=== PATIENT | female | born 1985 | race Caucasian/White ===

== ENCOUNTER → 2017-09-04 15:15 | Outpatient (CLI) | payer BC, SELFPAY ==
[2017-09-04 18:04] LABS: Hemoglobin A1c 5.5 % (4.2-6.3)
[2017-09-04 18:05] LABS: Free T3 2.7 pg/mL (2.18-3.98); T4 Free Direct 0.81 ng/dL (0.76-1.46); Thyroid Stim Hormone (TSH) 1.06 uIU/mL (0.358-3.74)
== END ==
PROVIDERS: Family Provider Nurse Practitioner Primary Care; PCP Nurse Practitioner Primary Care; Visit Provider Obstetrics & Gynecology
DX: N92.0 Excessive and frequent menstruation with regular cycle (principal); Z86.32 Personal history of gestational diabetes
CPT/HCPCS: 83036; 84439; 84443; 84481

== ENCOUNTER → 2018-08-24 09:54 | Outpatient (CLI) | payer BC, SELFPAY ==
[2018-08-27 11:28] LABS: HPV APTIMA, High Risk Negative (Negative)
== END ==
PROVIDERS: Visit Provider Obstetrics & Gynecology
DX: Z01.419 Encounter for gynecological examination (general) (routine) without abnormal findings (principal); Z12.4 Encounter for screening for malignant neoplasm of cervix
CPT/HCPCS: 87624; 88175; G0145

== ENCOUNTER → 2018-08-27 16:53 | Outpatient (CLI) | payer BC, SELFPAY ==
[2016-12-20 15:41] VITALS: BMI 29.2
[2018-08-27 20:11] LABS: Chlamydia Trachomatis by PCR Negative (Negative); Neisserai gonorrhoeae by PCR Negative (Negative); Probe Check PASS; Sample Adequacy Control PASS; Specimen Processing Control PASS
== END ==
PROVIDERS: Visit Provider Obstetrics & Gynecology
DX: Z11.3 Encounter for screening for infections with a predominantly sexual mode of transmission (principal)
CPT/HCPCS: 87491; 87591

== ENCOUNTER 2019-06-29 17:07 | Emergency (ER) | payer BC, SELFPAY ==
[2019-06-29 17:09] VITALS: BP 127/71; PULSE 73; RESP 16; TEMP 36.6; O2SAT 99; BMI 26.5
--- NOTE | 2019-06-29 17:12 | NURSING ---
NO OLD EKGS
--- NOTE | 2019-06-29 17:40 | EKG12_ITS ---
Test Reason : CP Blood Pressure : / mmHG Vent. Rate : 060 BPM Atrial Rate : 060 BPM P-R Int : 162 ms QRS Dur : 084 ms QT Int : 424 ms P-R-T Axes : 026 040 041 degrees QTc Int : 424 ms Normal sinus rhythm Normal ECG Confirmed by ACE SINGH ([id number]), production editor SKIP GOLDSTEIN ([id number]) on 07/04/2019 9:07:56 AM Referred By: MR Confirmed By:ACE SINGH
[2019-06-29 17:51] VITALS: PULSE 71; RESP 18; O2SAT 100
--- NOTE | 2019-06-29 17:55 | RAD_ITS ---
STUDY: X-RAY CHEST REASON FOR EXAM: Female, 34 years old. Chest pain TECHNIQUE: Frontal and lateral views COMPARISON: None. FINDINGS: The lungs are clear and expanded. There is no demonstrated pleural abnormality. Normal size heart. Normal mediastinum and geoffrey. Normal visualized pulmonary arteries. Normal visualized aortic arch and descending thoracic aorta. Normal visualized thoracic spine. Normal visualized ribs, clavicles, and shoulders. There is no demonstrated abnormality of the visualized soft tissue structures of the upper abdomen. RAD/Chest PA and Lateral IMPRESSION: Normal x-ray examination of the chest. Electronically Signed: Kar Funk DO at 18:30 EST Tel [phone], Service support ,
[2019-06-29 18:03] LABS: Absolute Lymphocyte Count 3.19 X10^3/uL (0.83-4.51); Absolute Neutrophil Count 4.4 X10^3/uL (2.0-7.7); Basophil# 0.04 X10^3/uL; Basophil% 0.5 % (0-1); Eosinophil# 0.17 X10^3/uL; Hematocrit 43.5 % (37-47); Lymphocyte # 3.19 X10^3/ul (4.0); Lymphocyte % 37.6 % (19-41); Mean Corp Hgb Conc 32.2 g/dL (32-36); Mean Corpuscular Hgb 29.2 pg (27.0-32.0); Mean Corpuscular Volume 90.8 fL (81-99); Mean Platelet Vol. 11.2 fl (6.2-12.0); Monocyte# 0.69 X10^3/uL; Monocyte% 8.1 % (0-10); NRBC Flagged by Analyzer 0 % (0-5); Neutrophil # 4.38 X10^3/uL (2.7-7.7); Neutrophil % 51.6 % (47-70); Platelet Count 239 K/mm3 (150-450); RBC Distribution Width CV 12.3 % (11.6-14.6); RBC Distribution Width SD 40.6 fl (35.1-43.9); Red Blood Count 4.79 M/mm3 (4.2-5.4); White Blood Count 8.5 K/mm3 (4.4-11.0)
[2019-06-29 18:20] LABS: Internal QC Validated? YES +Cl - CLEAR BKGD; Pregnancy, Serum, hCG Quali. NEGATIVE Negative
[2019-06-29 18:21] LABS: D-Dimer Quantitative (DVT/PE) < 0.27 FEU/ug/m (0.27-0.49)
[2019-06-29 18:26] LABS: Anion Gap 5 (5-15); BUN 11 mg/dL (7-18); BUN/Creat Ratio 15.7 RATIO (10-20); Chloride 110 mmol/L (98-107); EST Glomerular Filtration Rate 100 mL/min (>60); Est Glom Filt Rate - Afr Amer 121 mL/min (>60); Estimated Creatinine Clearance 91.91 ml/min; Glucose 88 mg/dL (74-106); Potassium 3.6 mmol/L (3.5-5.1); Sodium Level 142 mmol/L (136-145); Thyroid Stim Hormone (TSH) 1.89 uIU/mL (0.358-3.74)
--- NOTE | 2019-06-29 19:07 | ED.VIS.CHEST ---
History of Present Illness Chief Complaint: Chest Pain Informant: Patient Narrative: Patient presenting for evaluation secondary to chest pain. Patient reports that over the course the last 2 days she has been dealing with intermittent chest pain. This has no exacerbating or relieving qualities and will last for about 30 minutes at a time and is describes as a tightness. No palpitations shortness of breath lightheadedness or syncope. Patient denies any recent weight loss weight gain heat or cold intolerance. Patient states that she was at her sleep apnea doctor and she was noted to have an irregular heartbeat and was recommended to come to the emergency department. Patient denies any DVT or PE risk factors other than the fact that she takes control. Review of systems otherwise negative. Past Medical History - Allergies and Home Meds Allergies/Adverse Reactions: Allergies naproxen Adverse Reaction (Verified 06/29/19 17:11) Nausea soy Adverse Reaction (Verified 06/29/19 17:11) Nausea/Vom/Diarrhea pea's Allergy (Uncoded 06/29/19 17:11) Other unknown reaction, food allergy tested Primary Care Physician: Carline Parikh NP-C [Primary Care Provider] - Past Medical History: None Smoking Status: Never smoker Review of Systems All systems negative except as indicated General: Denies: Chills, Fever, Sweats Eyes: Denies: Visual changes - bilaterally, Diplopia ENT: Denies: Rhinorrhea, Sore throat Cardiovascular: Reports: Chest pain Respiratory: Denies: Dyspnea, Cough, Dyspnea on exertion Gastrointestinal: Denies: Abdominal pain, Nausea, Vomiting, Diarrhea, Melena, Hematochezia Genitourinary: Denies: Dysuria, Hematuria, Frequency Musculoskeletal: Denies: Back pain, Extremity Pain Skin: Denies: Rash, Wounds Neurological: Denies: Headache, Weakness, Numbness Psych: Denies: Depression Endocrine: Denies: Polyuria Hematologic: Denies: Easy bleeding Allergy: Denies: Swelling of the mouth Physical Exam Vital Signs/Narrative: Vital Signs Temp Pulse Resp BP Pulse Ox 06/29/19 17:51 71 18 100 06/29/19 17:09 97.8 F 73 16 127/71 H 99 Inital Vital Signs reviewed: Yes General: Well nourished, Well developed, No Acute Distress Head: Normocephalic, Atraumatic Eyes: Perrl, EOMI ENT: Moist mucous membranes, No rhinorrhea Neck: Supple, Nontender Cardiovascular: Regular rate, No murmurs, Irregular - Frequent extrasystoles Respiratory: No distress, CTA bilaterally, Chest nontender Abdomen: Soft, Nontender, Nondistended, Normal bowel sounds Back: Nontender, Normal Inspection Extremities: Nontender, No edema Skin: Normal color, No rash Neurological: Alert, Oriented x3, Cranial nerves II-XII grossly intact, Normal Strength, Normal Sensation Psychological: Normal affect, Normal Mood Diagnostic/Tx/Re-eval Chest X-Ray - ED: 2 View, Read by ED Physician, Read by Radiologist, Normal - EKG Initial EKG Interpretation: - - Normal sinus rhythm of 60 with normal VA and QTc intervals. Isoelectric ST segments normal T waves. No evidence of acute ischemia or arrhythmia. No evidence of WPW or Brugada morphology. - Medical Decision Making Patient presented for evaluation secondary to chest pain. On the polysomnographic tech it was noted that the patient has having frequent PVCs up to 10-15 per 62nd interval. She had no couplets or runs of V. tach. Patient's work-up including CBC chemistry troponin TSH and d-dimer were all found to be unremarkable. Chest x-ray unremarkable. I discussed patient's case on the telephone with covering cardiology who recommended the patient be set up with a 48-hour Holter monitor, and will receive follow-up in the cardiology office and likely an outpatient echocardiogram. Patient's heart score is low risk she does not require admission for cardiac rule out.patient was set up for the Holter monitor in the emergency department and was discharged in stable condition. ED Disposition - Plan for ED Patient: Disposition: Home or Assisted Living Diagnosis: PVCs (premature ventricular contractions) Instructions: Palpitations Referrals: Tony Delvalle MD [STAFF PHYSICIAN] - As soon as possible
[2019-06-29 19:31] VITALS: BP 125/83; PULSE 66; RESP 21; O2SAT 98
--- NOTE | 2019-06-29 19:31 | ED.RN ---
IV DC'ED, CATHETER INTACT, SMALL GAUZE DRESSING PLACED. DISCHARGE INSTRUCTIONS GIVEN TO AND REVIEWED WITH PATIENT, PATIENT DENIES QUESTIONS OR CONCERNS AND VOICES UNDERSTANDING OF DISCHARGE INSTRUCTIONS. RESPIRATORY AT BEDSIDE TO PLACE HOLTER MONITOR.
== END 2019-06-29 19:32 | disposition home or self-care (01) ==
PROVIDERS: Emergency Provider Emergency Medicine; Family Provider Nurse Practitioner Primary Care; PCP Nurse Practitioner Primary Care
DX: I49.3 Ventricular premature depolarization (principal); G47.30 Sleep apnea, unspecified
CPT/HCPCS: 71046; 80048; 84443; 84484; 84703; 85025; 85379; 93005; 99284; A4216

== ENCOUNTER → 2019-06-29 19:14 | Outpatient (CLI) | payer BC, SELFPAY ==
[2019-06-29 17:09] VITALS: BMI 26.5
== END ==
LOC: ED 19:16 → CVS 19:19
PROVIDERS: Family Provider Nurse Practitioner Primary Care; PCP Nurse Practitioner Primary Care; Referring Provider Internal Medicine Cardiovascular Disease; Visit Provider Internal Medicine Cardiovascular Disease
DX: R07.9 Chest pain, unspecified (principal)
CPT/HCPCS: 93225; 93226

== ENCOUNTER → 2019-07-07 13:34 | Outpatient (CLI) | payer BC, SELFPAY ==
[2019-06-29 17:09] VITALS: BMI 26.5
[2019-07-01 11:04] VITALS: BMI 26.5
--- NOTE | 2019-07-07 13:36 | ECHOCS_ITS ---
Reason For Study: CP Procedure This was a 2D Doppler, Color Flow transthoracic echocardiogram. The study was technically difficult. Contrast injection was performed. Exam performed in department. Left Ventricle Normal LV size. Left ventricular systolic function is normal. The estimated ejection fraction is 65 %. No evidence for diastolic dysfunction. No regional wall motion abnormalities noted. Right Ventricle Normal size and thickness. Normal systolic function. Atria Normal left atrium. Normal right atrium. No doppler evidence for ASD. Mitral Valve There is no mitral annular calcification. Normal mitral valve. Trivial mitral valve insufficiency. Tricuspid Valve Normal tricuspid valve. Trivial tricuspid valve insufficiency. Aortic Valve Trisinus/trileaflet aortic valve. Normal aortic valve. Pulmonic Valve The pulmonic valve is not well visualized. Great Vessels Normal sized aortic root. Pericardium/Pleural No pericardial effusion. Medication 22 gauge I.V. with prn adaptor inserted into right arm. Diluted definity 2ml given slow IV push to enhance endocardial definition. MMode/2D Measurements & Calculations LVIDd: 4.3 cm IVSd: 0.98 cm LA dimension: 3.2 cm LVIDs: 2.6 cm LVPWd: 1.0 cm RVDd: 2.8 cm FS: 40.0 % LAV(MOD-sp4): 21.1 ml LA A4 area: 10.2 cm2 RA A4 area: 12.7 cm2 Time Measurements MV dec time: 0.20 sec Doppler Measurements & Calculations MV E max rober: 88.2 cm/sec Lat Peak E' Rober: 17.6 cm/sec Med Peak E' Rober: 15.6 cm/sec MV A max rober: 85.6 cm/sec E/E' lat: 5.0 E/E' med: 5.7 MV E/A: 1.0 MV V2 max: 109.1 cm/sec MV P1/2t max rober: 109.8 cm/sec Ao V2 max: 144.7 cm/sec MV max P.8 mmHg MV P1/2t: 64.4 msec Ao max P.4 mmHg MV V2 mean: 63.1 cm/sec MV dec slope: 498.9 cm/sec2 MV mean P.9 mmHg MV V2 VTI: 24.1 cm MVA(P1/2t): 3.4 cm2 LV V1 max: 99.2 cm/sec PA V2 max: 88.0 cm/sec LV V1 max P.9 mmHg Interpretation Summary The study was technically difficult. Contrast injection was performed. Left ventricular systolic function is normal. The estimated ejection fraction is 65 %. Trivial mitral valve insufficiency. Trivial tricuspid valve insufficiency. No evidence for diastolic dysfunction. Ordering Physician: Tony Delvalle Referring Physician: Carline Parikh Performed By: Aristeo Patel RCS
== END ==
PROVIDERS: Family Provider Nurse Practitioner Primary Care; PCP Nurse Practitioner Primary Care; Referring Provider Internal Medicine Cardiovascular Disease; Visit Provider Internal Medicine Cardiovascular Disease
DX: I49.3 Ventricular premature depolarization (principal); R07.9 Chest pain, unspecified
CPT/HCPCS: 93306; Q9957; A4216; C8929

== ENCOUNTER → 2019-07-09 11:15 | Outpatient (CLI) | payer BC, SELFPAY ==
[2019-07-01 11:04] VITALS: BMI 26.5
--- NOTE | 2019-07-09 17:13 | STRESSREP_ITS ---
Stress Test Report Date: 07-09-19 Procedure: Exercise tolerance test Indications: Chest pain Consent: Per the patient Procedure: The patient exercised on a Ney protocol for 10 minutes completing Stage III and 1 minute of Stage IV achieving a peak heart rate of 166 bpm (90 % predicted maximal heart rate) with a peak blood pressure 134/74 mmHg and a peak MET capacity of approximately 11 mET's. The baseline ECG demonstrated normal sinus rhythm. The peak exercise ECG demonstrated no obvious ECG changes. There were occasional PVCs pretest, during exercise, and recovery. The functional capacity was considered good. The patient had no complaint of chest discomfort during exercise or recovery. The examination was discontinued secondary to dyspnea and leg fatigue. Impression: 1. Technically adequate (percent predicted maximal heart rate greater than 85%) exercise tolerance test 2. Peak exercise ECG with with no obvious ECG changes 3. Occasional PVCs pretest, during exercise, and recovery This note was generated with [employer] software. It may contain incorrect words, spelling, and punctuation that were not noted in checking the note before signing.
== END ==
PROVIDERS: Family Provider Nurse Practitioner Primary Care; PCP Nurse Practitioner Primary Care; Referring Provider Internal Medicine Cardiovascular Disease; Visit Provider Internal Medicine Cardiovascular Disease
DX: R07.9 Chest pain, unspecified (principal)
CPT/HCPCS: 93017

== ENCOUNTER 2019-07-12 08:10 | Day surgery (SDC) | payer BC, SELFPAY ==
[2019-07-01 11:04] VITALS: BMI 26.5
[2019-07-07 16:28] LABS: Hematocrit 46.1 % (37-47); Hemoglobin 14.7 g/dL (12.0-15.0); Mean Corp Hgb Conc 31.9 g/dL (32-36); Mean Corpuscular Hgb 29.2 pg (27.0-32.0); Mean Corpuscular Volume 91.5 fL (81-99); Mean Platelet Vol. 11.3 fl (6.2-12.0); Platelet Count 228 K/mm3 (150-450); RBC Distribution Width CV 12.3 % (11.6-14.6); RBC Distribution Width SD 41.5 fl (35.1-43.9); Red Blood Count 5.04 M/mm3 (4.2-5.4); White Blood Count 8.9 K/mm3 (4.4-11.0)
[2019-07-07 16:38] LABS: Partial Thromboplast Time 26.8 Seconds (24.1-36.2)
[2019-07-07 17:29] LABS: Creatinine, Serum 0.65 mg/dL (0.55-1.02); EST Glomerular Filtration Rate 109 mL/min (>60); Est Glom Filt Rate - Afr Amer 131 mL/min (>60)
--- NOTE | 2019-07-11 19:12 | PCM.HP.BLA ---
History and Physical Date of Admission: 07/12/19 Surgical History and Physical Cecilia Phelps, a 34 year old female 1 1 1 1 4, presents for Robotic hysterectomy, bilateral salpingectomy on July 12, 2019 at 10:00. -- Menorrhagia; Uncontrollable Uterine Niche Bleeding -- Notes continues heavy and prolonged menses, no intermenstrual bleeding. She has been bleeding for 2 weeks since she started her menses. No improvement of abnormal uterine bleeding since LVG IUD placed (Liletta). She reports monthly menses with intermenstrual bleeding c/w spotting and intermittent heavy gushing of BRB. She has cramping most days of the month. Denies dyspareunia, fever, chills or abnormal discharge. Irregular Menses and LMP of 06-23-19 lasting 14 days. Reports she was in the ER Friday06/29/19 for PVC's and has since seen Dr. Delvalle and had a Echo and scheduled for a Stress Test. Menorrhagia, Uncontrollable Uterine Niche Bleeding which began years ago. Cecilia claims it started after her 2nd It occurs intermittantly. It is located in the vagina. Cecilia characterizes the quality heavy intermittant dark bleeding any time in the cycle. Severity is worsening. Associated signs and symptoms are bleeding not helped by multiple OCPs or Liletta IUD. Additional comments are: u/s shows moderately large pouch in area of old scar (a Niche) with this considered unsafe for ablation procedure due to possible injury of bladder from ablation; unpredictable dark discharge from fluid collected in pouch can occur anytime. MEDICATIONS HISTORY: Current medications prescribed by our practice are: 1. Liletta 19.5 mcg/24 hour (4 years) intrauterine device, As Directed Patient is also takin. Sleep Comforts misc, C Pap 2. ibuprofen 600 mg tablet, As Directed ALLERGIES: Naproxyn, Abdominal pain, heartburn, Naproxen, Heartburn, Adhesive Tape, Blisters, Soy and Intolerance-unknown Infections - Chicken pox Illnesses - sleep apnea, hypothyroidism Accidents - no injuries of consequence Hospitalizations - see surgery infertility; Review of Systems: GENERAL - Denies fever, or chills SKIN - Denies skin changes EYES - Denies visual changes EARS - Denies difficulty hearing NOSE - Denies nasal congestion or bleeding MOUTH - Denies sore throat or difficulty swallowing NECK - Denies pain or swelling RESPIRATORY - Denies shortness of breath or wheezing CARDIOVASCULAR - Denies palpitations or chest pain GASTROINTESTINAL - Denies nausea, vomiting, diarrhea, constipation GENITOURINARY - Denies dysuria, frequency of urination, incontinence of urine MUSCULOSKELETAL - Denies joint or muscle pain NEUROLOGICAL - Denies localized numbness or weakness PSYCHIATRIC - Denies depression or anxiety ENDOCRINE - Denies heat or cold intolerance, weight loss or gain HEMATO-IMMUNOLOGIC - Denies excessive bleeding with cuts SOCIAL HISTORY: Alcohol Use - None Smoking - Never Diet - balanced Diet Lifestyle - moderate stress lifestyle and active lifestyle Exercise - minimal Seat Belt Use - always [employer] Job Description - entry level administrative assistant Illicit Drug Use - denies use of street drugs Sexual Activity - and ACTIVE [employer] PARTNER Residence - lives with Place of - [place] Hours Worked - 25-29 hrs per week Spouse-Sig Other Name - Tolu Phelps Spouse-Sig Other Occupation - [employer] Spouse-Sig Other Phone No - [phone] Children Name(s) - Jayesh Rudolph (twins) '13 Chuckie , Luisa Control - Liletta IUD FAMILY HISTORY: Family history of cancer, grandfather and great-grandmothe. Father: diabetes. Maternal Grandmother: diabetes. Paternal Grandmother: diabetes. MENSTRUAL HISTORY: LMP Known?- DefiniteAmount/Duration - 14 days, Regularity - Irregular, Frequency - monthly days, LMP - 06/23/19 PAST PREGNANCIES: Total Pregnancies - 4; Full Term Pregnancies - 1; Premature - 1; Abortions, Induced - 0; Abortions, Spontaneous - 1; Ectopics - 0; Multiple Births - 1; Living Children - 4 SURGICAL HISTORY: 1. 10/14/2012 ; Gale Beltrán MD 2. [place] teeth removed 00' 3. 03/08/2013 ESWL ; Dr. Galicia 4. 07/12/2014 ; Gale Beltrán MD 5. 06/11/2012 Appendectomy 6. 12/21/2016 ; Michell Grace MD PHYSICAL EXAM BP- 104/78 Sitting, Right arm, regular cuff Weight- 150.74652 lbs Height- 63 inch BMI:26.63 CONSTITUTIONAL - NAD, well nourished, and well developed SKIN - No rash, lesions, or ulcers HEENT - Normocephalic, PERRLA, EOMI NECK - No nodes, no nuchal rigidity and thyroid normal size and texture LYMPH NODES - Palpation of lymph nodes in neck and groins within normal limits LUNGS - CTA x2 without wheezes, crackles or rales CARDIAC - Regular rate and rhythm without rubs, murmurs, or gallops BREAST - No dominant masses, no tenderness, no axillary adenopathy, no nipple discharge, no skin changes ABDOMEN - Without hepatosplenomegaly, distention, masses, rebound, or guarding; normal bowel sounds; no hernias EXTREMITIES - No edema or calf tenderness NEUROLOGICAL - normal gait, normal balance, normal motor PSYCHIATRIC - A and O to time, place, person, mood and affect DETAILED PELVIC EXAM External Genital Vagina - non-tender without lesions Urethra/Urethral Meatus - non-tender Bladder - non-tender Vagina - vaginal fuentes are pink and moist without loss of rugae and no evidence of atropy Cervix - without cervical motion tenderness and has normal size and features without evident lesions Uterus - enlarged uterus 8 wks, wt 125-150 g Adnexa - clear without masses or tenderness ASSESSMENT/PLAN: 1. Maternal Care For Scar From Previous Delivery, Other Specified Noninflammatory Disorders Of Uterus and Premenopause Menorrhagia Suspect isthmocele/uterine niche No improvement of bleeding with lvg IUD or OCPs. Pelvic u/s without polyps or fibroids so D and C should not be helpful or diagnostic Discussed endometrial ablation with review of increased risk for bladder injury versus hysterectomy. Fertility no longer desired. Procedural r/b/i reviewed - pt opts for hysterectomy Plan to proceed with RAVH/BS. Discussed RBAs and all questions answered.
[2019-07-12] VITALS (11 sets, daily range): BP systolic 96–135; BP diastolic 50–80; PULSE 61–90; RESP 14–18; TEMP 36.3–37; O2SAT 92–100; BMI 26.4
[2019-07-12] MEDS: Lactated Ringers 1,000 ML 100 ML IV ×3 (09:10→12:15)
[2019-07-12 09:20] LABS: Internal QC Validated? YES +Cl - CLEAR BKGD; Pregnancy, Urine Negative Negative
--- NOTE | 2019-07-12 10:10 | HYST_PTH ---
PATIENT: JORY ADRIAN [place] [facility] [place] [facility] [id number] AGE/SX: 34/F ROOM: RE07/12/[address]: Dr. John Llanos MD : [id number] BED: DIS: 07/13/2019 SPEC #: [id number] RECD: 07/12/19 13:47 STATUS: RICARDO GILBERT #: [id number] RIDDHI: 07/12/19 10:[address]: John Llanos DEPT: SURGICAL PATHOLOGY RECD BY: Cathy Buck ENTERED: 07/12/19 14:53 SP TYPE: HYSTERECT OTHR DR: Carline Parikh, LIVE AMMUNITION INSPECTOR-C Tissues: Uterus, NOS Procedures: Surgery Specimen Level V HEADER OPERATION: Lap robotic hysterectomy, bilateral salpingectomy PRE-OP DIAGNOSIS: Noninflammatory disorder of uterus; premenopause menorrhagia TISSUE SUBMITTED: Uterus and bilateral fallopian tubes MICROSCOPIC DIAGNOSIS Uterus, hysterectomy: Cervix - nabothian cysts and minimal chronic inflammation. Endometrium - secretory endometrium. Myometrium - focal superficial adenomyosis. Right fallopian tube - benign paratubal cysts. Left fallopian tube - no pathologic change. AM:yoel 07/13/19 MICROSCOPIC DESCRIPTION Slides are reviewed. GROSS DESCRIPTION Received in fixative is one container labeled with the patient's name and designated uterus. The specimen consists of a uterus with attached cervix and attached right and left fallopian tubes. The uterus with cervix measures 9.5 x 6 x 4.5 cm and weighs 87 gm. The ectocervix is grossly unremarkable. The cervical os is oval in contour. The endocervical canal measures 3.8 cm in length and is grossly unremarkable. The triangular endometrial cavity 4 x 3.6 cm. The velvety, light keita endometrium measures up to 0.2 cm in thickness. The myometrium measures 2 cm in average thickness and is free of mass lesions. The right and left fallopian tubes are similar in appearance with average lengths of 6 cm and average diameters of 0.5 cm. Normal fimbriated ends are visible. Restaurant Greeter sections are submitted in eight cassettes as follows: 1 - anterior cervix, 2 - posterior cervix, 3 & 4 - anterior uterine wall, 5 & 6 - posterior uterine wall, 7 - right fallopian tube, 8 - left fallopian tube. / AM:yoel 07/12/19 TC:5 CPT: 14877
--- NOTE | 2019-07-12 10:45 | PCM.OPRPT ---
Report of Operation Date of Procedure: 07/12/19 Pre-Operative Diagnosis: Menorrhagia Post-Operative Diagnosis: Menorrhagia and Adhesions Surgery/Procedure Performed:: Robotic Assisted Vaginal Hysterectomy and Bilateral Salpingectomy, Lysis of Adhesions Description of Surgical Findings:: 10 cm uterus with normal appearing fallopian tubes and ovaries. Dense adhesions of uterus to bladder. Adhesions of omentum to anterior abdominal wall. powertrain engineer: Shiv Rosenberg Type of Anesthesia:: General - No tracheal Anesthesiologist: Richard Solo Specimen's removed: Uterus and bilateral fallopian tubes Drains: Agarwal to straight drain Estimated Blood Loss (mL): 50 cc Fluids Replaced: Crystalloid Description of Procedure: Surgeon: John Llanos MD, FACOG Indication: This is a 34 year old patient who has been having problems with uncontrolled heavy bleeding and a division noted in her prior section incision line on ultrasound. Conservative measures including a Liletta IUD have not been helpful. The patient has been counseled regarding the risks, benefits and alternatives of this procedure including the possibility of bleeding, infection, and injury to surrounding structures such as bowel bladder and all questions were answered. She understands that if BSO is needed that she will need to be on HRT for an indefinite period of time. Procedure: Pt taken to the operating room where, after induction of general anesthesia, the patient was prepped and draped in the usual sterile fashion and placed on a non-slip Huggy-u-vac device. Trendelenburg test was satisfactory. Bladder was drained of urine with a Agarwal catheter which was left in place. Anterior cervix grasped and cervix was dilated to about 3-4 mm. Uterus sounded to 9 cms. 0-Vicryl suture was placed at the 3:00 and 9:00 position of the cervix. A small Advincula Administrative Project Coordinator Uterine Manipulator was then placed in the uterus and attention was turned to the laparoscopic portion of the procedure. Ropivocaine 0.5% was injected approximately 2-3 cm superior to the umbilicus and an 8 mm robotic camera port was introduced directly with intraperitoneal placement confirmed with CO2 insufflation. 8 mm robotic side ports were introduced under direct visualization approximately 11 cm lateral and 2 cm inferior to the umbilical port. A 5 mm left upper quadrant port was introduced and airseal insufflation with CO2 was started. The above findings were noted. Robot was docked without difficulty and attention turned to the robotic portion of the procedure. Approximately 29 cc of Ropivicaine was used. Bilateral mesosalpinx were ligated with 35 culp bipolar coagulation to the level of the round ligament after dividing the anterior omental adhesions sharply and bluntly. The posterior aspect of the cervix was identified and then opened for about 1 cm using 25 watt monopolar cautery. The densely adhered bladder flap was carefully opened and divided to the level of the round ligaments using monopolar cautery. Progressive bites were then ligated on each side of the cervix with 35 culp bipolar cautery to the uterine arteries. The anterior vaginal mucosa was entered and cervix circumscribed with monopolar cautery. Uterus and attached tubes were removed through the vagina. Vaginal cuff was closed first with 0-Vicryl Juan Jose stitches placed at each angle followed by closure of the mid-cuff with 0-Monocryl V-lock suture in two layers. Pelvis was copiously irrigated with saline and the right ureter was noted to peristalse. Robot was undocked and trocars were removed with as much gas as possible. Incisions were closed with 4-0 Monocryl subcuticular sutures and incisions covered with steri-strips. The patient tolerated the procedure well and was taken to the recovery room in satisfactory condition. Sponge, instruments and needle counts were all correct. There were no apparent complications of the surgery. Cefotan 2 gms IV was given prior to the procedure. Estimated Blood Loss: 50 cc Specimen to Pathology: Uterus and bilateral fallopian tubes Grafts/Implants Used: None - Complications None - Admit VTE Documentation VTE Present on Admission: Yes VTE Mechan Device Prophylaxis: SCD's VTE Pharm Prophylaxis ordered?: Yes
[2019-07-12] MEDS: Ropivacaine 0.5% 30 ML Vial (11:00)
--- NOTE | 2019-07-12 12:49 | DCINST_ITS ---
Discharge Diet: No Restrictions Discharge Activity: Return to Normal Activity, May Not Drive - while taking narcotic pain medications., May Shower May resume sexual activity in: 6-8 weeks Call your doctor if your incision/area has: Continuous Slow Oozing, Sudden Increased Bleeding, Increased Pain/ Swelling, Increased Redness, Foul Smelling Discharge Call your doctor if you observe: Fever of 101 or Higher, Inability to urinate, Inability to have a bowel movement, Using more than one pad per hour Allergies/Adverse Reactions: Allergies naproxen Adverse Reaction (Verified 07/12/19 09:01) Nausea soy Adverse Reaction (Verified 07/12/19 09:01) Nausea/Vom/Diarrhea pea's Allergy (Uncoded 07/12/19 09:01) Other unknown reaction, food allergy tested Medications to take at Discharge Docusate Sodium [Colace] 100 mg PO BID PRN PRN #60 cap 07/12/19 RX: Oxycodone [Oxyir] 5 mg PO Q6H PRN PRN 7 Days #14 tab 07/12/19 The following prescriptions were given: Docusate Sodium [Colace] 100 mg PO BID PRN PRN #60 cap PRN Reason: Constipation Transmission Status: Received by [id number] RX: Oxycodone [Oxyir] 5 mg PO Q6H PRN PRN 7 Days #14 tab PRN Reason: Pain Score 6-10/10 Transmission Status: Received by [id number] Primary Care Physician: Carline Parikh NP-C [Primary Care Provider] - Test Results: Test results from this visit will be discussed in further detail at your follow- up appointment, if applicable. Please Follow Up With: John Llanos MD When: 2 to 3 weeks
[2019-07-12] MEDS: Ketorolac 30 MG/ML Syringe IV ×2 (13:18→19:33)
[2019-07-12] MEDS: Dextrose 5%-Lactated Ringers 1,000 ML 150 ML IV ×2 (15:14→21:01)
[2019-07-12] MEDS: Ondansetron 4 MG/2 ML Vial IV (15:22)
[2019-07-12] MEDS: HYDROmorphone 0.5 MG/0.5 ML SYRINGE IV (16:47)
[2019-07-12] MEDS: Enoxaparin 30 MG/0.3 ML Syringe SC (18:50)
[2019-07-13 01:44] VITALS: BP 98/60; PULSE 85; RESP 16; TEMP 37; O2SAT 97
[2019-07-13] MEDS: Ketorolac 30 MG/ML Syringe IV ×2 (01:44→06:10)
[2019-07-13 05:53] LABS: Hematocrit 36.3 % (37-47); Hemoglobin 11.3 g/dL (12.0-15.0); Mean Corp Hgb Conc 31.1 g/dL (32-36); Mean Corpuscular Hgb 28.8 pg (27.0-32.0); Mean Corpuscular Volume 92.4 fL (81-99); Mean Platelet Vol. 11.6 fl (6.2-12.0); Platelet Count 168 K/mm3 (150-450); RBC Distribution Width CV 12.8 % (11.6-14.6); RBC Distribution Width SD 43.4 fl (35.1-43.9); Red Blood Count 3.93 M/mm3 (4.2-5.4); White Blood Count 8.6 K/mm3 (4.4-11.0)
[2019-07-13] MEDS: 0.9% Saline Lock 10 ML Syringe IV (06:06)
[2019-07-13 06:09] LABS: Creatinine, Serum 0.63 mg/dL (0.55-1.02); EST Glomerular Filtration Rate 114 mL/min (>60); Est Glom Filt Rate - Afr Amer 138 mL/min (>60); Estimated Creatinine Clearance 102.12 ml/min
[2019-07-13 07:40] VITALS: BP 95/58; PULSE 74; RESP 16; TEMP 36.7; O2SAT 97
--- NOTE | 2019-07-13 08:26 | PCM.PN.OB ---
Subjective: Patient without complaints. Tolerating diet well. Positive flatus. Minimal vaginal bleeding. Discussed surgery and findings. - Physical Exam Vitals/I&O's: Vital Signs Temp Pulse Resp BP Pulse Ox 98.1 F 74 16 95/58 L 97 07/13/19 07:40 07/13/19 07:40 07/13/19 07:40 07/13/19 07:40 07/13/19 07:40 Oxygen Delivery Method Room Air Weight: 149 lb 7.574 oz Body Mass Index (BMI) 26.4 Intake and Output for Last 24 Hours 07/11/19 07/12/19 07/13/19 23:59 23:59 23:59 Intake Total 3438.33 / 3438.33 997.5 / 997.5 Output Total 575 / 575 1300 / 1300 Balance 2863.33 / 2863.33 -302.5 / -302.5 Comment: Wound CDI. Good urine output. Hemoglobin and creatinine okay. Laboratory Results 07/12/19 08:35: Urine Test Negative 07/13/19 05:30: WBC 8.6, RBC 3.93 L, Hgb 11.3 L, Hct 36.3 L, MCV 92.4, MCH 28.8, MCHC 31.1 L, RDW Std Deviation 43.4, RDW Coeff of Ayanna 12.8, Plt Count 168, MPV 11.6 07/13/19 05:30: Creatinine 0.63, Estim Creat Clear Calc 102.12, Est GFR (MDRD) Af Amer 138, Est GFR (MDRD) Non-Af 114 Current Medications Acetaminophen (Tylenol) 1,000 mg PO Q8H PRN PRN PRN Reason: Pain Score 1-3/10 or Fever Docusate Sodium (Colace) 100 mg PO BID PRN PRN PRN Reason: CONSTIPATION Hydromorphone HCl (Dilaudid Inj) 0.5 mg IV Q3H PRN PRN PRN Reason: Pain Score 4-10/10 Last Admin: 07/12/19 16:47 Dose: 0.5 mg Documented by: Influenza Virus Vaccine Quadrival (Flucelvax /Fluzone [id number]) 0.5 ml IM .ONCE ONE Stop: 07/13/19 10:01 Ketorolac Tromethamine (Toradol) 10 mg PO Q6 HUNTER Stop: 07/18/19 12:01 Ondansetron HCl (Zofran) 4 mg IV Q4H PRN PRN PRN Reason: NAUSEA Last Admin: 07/12/19 15:22 Dose: 4 mg Documented by: Oxycodone HCl (Oxyir) 5 mg PO Q4H PRN PRN PRN Reason: Pain Score 4-10/10 Sodium Chloride () 10 - 40 ml IV UD PRN PRN Reason: SALINE FLUSH Last Admin: 07/13/19 06:06 Dose: 10 ml Documented by: Medical Necessity - Tobacco Use Smoking Status: Never smoker Tobacco Use: Non-smoker Assessment/Plan Doing well postoperative day #1 status post robotic assisted vaginal hysterectomy and bilateral salpingectomy. Will release to home with routine instructions.
[2019-07-13] MEDS: oxyCODONE 5 MG Tablet PO (09:35)
== END 2019-07-13 10:02 | disposition home or self-care (01) ==
LOC: SDC 08:11 → AC 08:16 → MS3 09:56
PROVIDERS: Family Provider Nurse Practitioner Primary Care; PCP Nurse Practitioner Primary Care; Referring Provider Obstetrics & Gynecology; Visit Provider Obstetrics & Gynecology
PROC: 0UT90ZZ Resection of Uterus, Open Approach (ICD-10-PCS; CPT 58552; principal; 2019-07-12 09:50)
DX: N88.8 Other specified noninflammatory disorders of cervix uteri (principal); N72 Inflammatory disease of cervix uteri; N83.8 Other noninflammatory disorders of ovary, fallopian tube and broad ligament; Z30.431 Encounter for routine checking of intrauterine contraceptive device; Z79.899 Other long term (current) drug therapy; Z87.442 Personal history of urinary calculi; E03.9 Hypothyroidism, unspecified; G47.30 Sleep apnea, unspecified; Z23 Encounter for immunization; Z79.1 Long term (current) use of non-steroidal anti-inflammatories (NSAID); Z98.891 History of uterine scar from previous surgery
CPT/HCPCS: 58552; 36415; 81025; 82565; 85027; 85610; 85730; 86850; 86900; 86901; 88307; J7120; 90686; A4216; J2405

== ENCOUNTER → 2019-07-27 06:48 | Outpatient (CLI) | payer BC, SELFPAY ==
[2019-07-12 14:44] VITALS: BMI 26.4
--- NOTE | 2019-07-27 06:48 | CT_ITS ---
STUDY: CT CHEST WITH CONTRAST REASON FOR EXAM: Female, 34 years old. CHEST HEAVINESS X 1 MONTH. H/O PAC''S AND PVC''S. RADIATION DOSAGE (If Supplied By Facility): CTDIvol = ( 8.98 ) mGy, DLP = ( 282.54 ) mGycm TECHNIQUE: Transaxial imaging was performed following intravenous administration of IV 100mL Isovue-300. Multiplanar coronal and sagittal images were reformatted. Individualized dose optimization techniques were used for this CT. COMPARISON: None. FINDINGS: The lungs are normal. There is no demonstrated pleural abnormality. Normal heart and pericardium. Normal mediastinum. Normal hilar regions. Normal enhanced pulmonary arteries. Normal aorta arch and descending thoracic aorta. Normal osseous structures. There is no demonstrated abnormality of the visualized upper abdomen. CT/Chest WITH Contrast IMPRESSION: Normal enhanced CT Chest examination. Electronically Signed: Edu Sahh MD ([facility]) at 14:49 EST , Service support ,
== END ==
PROVIDERS: Family Provider Nurse Practitioner Primary Care; PCP Nurse Practitioner Primary Care; Referring Provider Internal Medicine Cardiovascular Disease; Visit Provider Internal Medicine Cardiovascular Disease
DX: R07.9 Chest pain, unspecified (principal)
CPT/HCPCS: 71260; Q9967

== ENCOUNTER → 2020-03-10 13:48 | Outpatient (CLI) | payer BC, SELFPAY ==
[2020-03-10 13:00] VITALS: BMI 25.0
--- NOTE | 2020-03-10 13:52 | RAD_ITS ---
STUDY: X-RAY CHEST REASON FOR EXAM: Female, 35 years old. CHEST PRESSURE PER PATIENT. SHE STATES HAS HAD THIS SINCE JUNE [facility], THEN IN WENT AWAY AND NOW ITS BACK AGAIN. TECHNIQUE: PA and lateral views of the chest. COMPARISON: Comparison is made with prior study dated 06/29/2019. FINDINGS: The lungs are clear and expanded. There is no demonstrated pleural abnormality. Normal size heart. Normal mediastinum and geoffrey. Normal visualized pulmonary arteries. Normal visualized aortic arch and descending thoracic aorta. Normal visualized thoracic spine. Normal visualized ribs, clavicles, and shoulders. There is no demonstrated abnormality of the visualized soft tissue structures of the upper abdomen. RAD/Chest PA and Lateral IMPRESSION: Normal x-ray examination of the chest. Electronically Signed: Tung Retana, at 14:27 EDT , Service support ,
== END ==
PROVIDERS: PCP Nurse Practitioner Primary Care; Referring Provider Physician Assistant Medical; Visit Provider Physician Assistant Medical
DX: R07.9 Chest pain, unspecified (principal)
CPT/HCPCS: 71046